=== PATIENT | female | born 1940 | race Caucasian/White ===

== ENCOUNTER 2017-07-13 03:01 | Inpatient (IN) | payer MEDICARE, OTHER ==
[2017-07-13] MEDS ORDERED: MORPHINE SULFATE 4 MG/0.8 ML SYRINGE (INJ) IVP STA (04:05)
[2017-07-13] MEDS ORDERED: ONDANSETRON 4 MG/2 ML VIAL IVP STA (04:05)
[2017-07-13] MEDS ORDERED: MORPHINE SULFATE 4 MG/0.8 ML SYRINGE (INJ) IV PRN (04:11)
[2017-07-13] MEDS ORDERED: NALOXONE 0.4 MG/ML 1 ML VIAL IV PRN (04:11)
[2017-07-13] MEDS ORDERED: ACETAMINOPHEN TAB 325 MG TAB PO PRN (04:11)
[2017-07-13] MEDS ORDERED: ONDANSETRON 4 MG/2 ML VIAL IVP PRN (04:11)
--- NOTE | 2017-07-13 04:11 | ED ---
Altered Mental Status HPI - General Chief Complaint: Altered Mental Status Stated Complaint: pneumonia Time Seen by Provider: 07/13/17 03:07 Source: patient, family, EMS Mode of arrival: EMS Limitations: no limitations - History of Present Illness Initial Comments: 77 years Oid female transferred from [facility] she has a history of small cell lung cancer today she presented with the left arm swelling in the left leg swelling and also complaining about the chest pain at [facility] they did her CBC, comp his metabolic panel, chest x-ray which showed pneumonia she also had a her mom CT of the chest which confirms the pneumonia and rule out PE as she also had a head CT which confirmed metastatic disease to the brain. They also investigated her left upper arm swelling in the left lower extremity swelling with the ultrasound of the both which was unremarkable and she was transferred down to [facility] since her oncologist is the Dr. Christian. On arrival she only complained about 2 chest pain apart from that review of system is unremarkable - Related Data Home Medications Medication Instructions Recorded Confirmed Hydrocodone/Acetaminophen [[place] 1 tab PO Q4H PRN 07/13/17 07/13/17 10-325] Allergies Allergy/AdvReac Type Severity Reaction Status Date / Time No Known Allergies Allergy Verified 07/13/17 03:11 Review of Systems ROS Statement: Those systems with pertinent positive or pertinent negative responses have been documented in the HPI. ROS Other: All systems not noted in ROS Statement are negative. Past Medical History Past Medical History: CVA/TIA, Diabetes Mellitus Additional Past Medical History / Comment(s): Lung CA "mets" to brain, pneumonia , hypotension, NIDDM History of Any Multi-Drug Resistant Organisms: None Reported Past Surgical History: Cholecystectomy Past Psychological History: No Psychological Hx Reported Smoking Status: Never smoker Past Alcohol Use History: None Reported Past Drug Use History: None Reported General Exam - General Exam Comments Initial Comments: General: The patient is awake and alert, looks pale and tired does answer questions appropriately but seems somewhat slow Skin: Skin is warm and dry and no rashes or lesions are noted. Eye: Pupils are equal, round and reactive to light, extra-ocular movements are intact; there is normal conjunctiva bilaterally. Ears, nose, mouth and throat: There are moist mucous membranes and no oral lesions. Neck: The neck is supple, there is no tenderness or JVD. Cardiovascular: There is a regular rate and rhythm. No murmur, rub or gallop is appreciated. Respiratory: To auscultation bilateral, crease breath sounds bilateral Gastrointestinal: Soft, non-distended, non-tender abdomen without masses or organomegaly noted. There is no rebound or guarding present. Bowel sounds are unremarkable. Back: There is no tenderness to palpation in the midline. There is no obvious deformity. Musculoskeletal: Normal ROM, no tenderness, There is no pedal edema. There is no calf tenderness or swelling. No cords were appreciated. Neurological: CN II-XII intact, Cranial nerves III through XII are intact. There are no obvious motor or sensory deficits. Coordination appears grossly intact. Speech is normal. Psychiatric: Cooperative, seems depressed Limitations: no limitations Course Vital Signs 07/13/17 03:02 Temperature 98.2 F Pulse Rate 98 Respiratory 18 Rate Blood Pressure 172/83 O2 Sat by Pulse 93 L Oximetry EKG is sinus rhythm with occasional premature ventricular complexes ventricular rate is 96 HI interval is 128 QRS duration is 76 QT/QTc is 340/429 review of this EKG as mentioned earlier have some PVCs no ST elevation or ST depression noticed She be admitted to Dr. Clinton Yates's service and will consult , he is her supervisor safety deposit and will consult Dr. Nur he is her oncologist Disposition Clinical Impression: Altered mental status, Brain metastases, History of lung cancer Disposition: ADMITTED IP TO THIS HOSP Condition: Poor Referrals: Wes Christian MD [Primary Care Provider] - 1-2 days
[2017-07-13] MEDS ORDERED: LEVOFLOXACIN 500 MG TAB PO STA (04:23)
[2017-07-13 05:35] VITALS: BMI 21.4
[2017-07-13 07:25] LABS: Glucose,Whole Blood 136 mg/dL (75-99)
[2017-07-13 11:38] LABS: Glucose,Whole Blood 166 mg/dL (75-99)
[2017-07-13] MEDS ORDERED: MECLIZINE 12.5 MG TAB PO PRN (12:47)
[2017-07-13] MEDS ORDERED: MORPHINE SULFATE 4 MG/ML SYRINGE IV PRN (15:01)
[2017-07-13] MEDS: HYDROcodone/APAP 10-325MG 1 EACH TAB PO PRN (16:17)
[2017-07-13 17:00] LABS: Glucose,Whole Blood 157 mg/dL (75-99)
--- NOTE | 2017-07-13 17:21 | P.CONS ---
History of Present Illness - Reason for Consult Consult date: 07/13/17 Metastatic lung cancer Requesting physician: Mary Prieto - Chief Complaint Altered mental status, transfer [facility], mets on brain CT - History of Present Illness Mrs. Olguin is a pleasant female pt of Dr. Christian, presented to [facility] ER due to increased shortness of breath over baseline, she was diagnosed with COPD exacerbation and admitted to the hospital, CXR 11/09/16 revealed a right middle lobe nodule, as well as possible mediastinal adenopathy , CT chest on the same day confirmed a 2.42.52.6 cm related nodule in the right middle lobe, outpatient bronchoscopy on 11/19/16, positive for moderately differentiated adenocarcinoma, consistent with lung primary based on IHC, staging PET 12/05/16 showed hyper metabolic right supraclavicular node measuring 1.21.1 cm, 2.71.7 cm right middle lobe nodule, as well as uptake in the veronica mass involving the right hilum, para carinal as well as left hilar areas. She was seen for initial consultation on 12/05/16, and concurrent chemo/XRT was planned, she had 3 cycles of chemo for stage III disease, treatment stopped end of Jan due to radiation esophagitis, sepsis and GI bleed. Pt was on follow up and her PS improved. She unfortunately earlier this year had a fall and that caused her left arm and shoulder pain. Her mental status over the last few days declined so family took pt to [facility], she was negative for DVT, CXR clear but brain CT showed evidence of metastatic disease. Pt is sitting in bed, eating, using only her right hand, she answers questions appropriately, denies fever, nausea, GUERDA, abd pain, changes in bowel or bladder habits, her arm pain is persistent but, manageable at this time. Review of Systems 10 point review of systems is as stated in HPI Past Medical History Past Medical History: CVA/TIA, Diabetes Mellitus Additional Past Medical History / Comment(s): Lung CA "mets" to brain, pneumonia , hypotension, NIDDM History of Any Multi-Drug Resistant Organisms: None Reported Past Surgical History: Cholecystectomy, Tonsillectomy Smoking Status: Former smoker - Past Family History Father Family Medical History: Unable to Obtain Medications and Allergies Home Medications Medication Instructions Recorded Confirmed Type Alendronate Sodium [Fosamax] 70 mg PO Q7D 07/13/17 07/13/17 History Atenolol [Atenolol] 07/13/17 History Atenolol [Tenormin] 12.5 mg PO DAILY 07/13/17 07/13/17 History Clopidogrel [Plavix] 75 mg PO DAILY 07/13/17 07/13/17 History Folic Acid 1 mg PO DAILY 07/13/17 07/13/17 History Hydrocodone/Acetaminophen [[place] 1 tab PO TID PRN 07/13/17 07/13/17 History 10-325] Ibuprofen [Motrin] 800 mg PO TID PRN 07/13/17 07/13/17 History Lisinopril-Hctz 20-12.5 mg 0.5 tab PO DAILY 07/13/17 07/13/17 History [Zestoretic 20-12.5] Ondansetron Odt [Zofran Odt] 4 mg PO Q8H PRN 07/13/17 07/13/17 History Pravastatin Sodium [Pravachol] 40 mg PO DAILY 07/13/17 07/13/17 History Prochlorperazine [Compazine] 10 mg PO Q6H PRN 07/13/17 07/13/17 History Allergies Allergy/AdvReac Type Severity Reaction Status Date / Time No Known Allergies Allergy Verified 07/13/17 09:28 Physical Exam Vitals: Vital Signs Temp Pulse Pulse Resp BP BP Pulse Ox 07/13/17 15:15 98 F 100 18 86/62 95 07/13/17 07:25 97.7 F 90 18 100/56 92 L 07/13/17 05:18 97.6 F 100 18 112/72 92 L 07/13/17 04:09 87 20 137/68 97 07/13/17 03:02 98.2 F 98 18 172/83 93 L Intake and Output 07/13/17 07/13/17 07/13/17 06:59 14:59 22:59 Intake Total 540 Balance 540 Intake: Oral 540 Other: Voiding Method Bedpan Diaper Diaper Incontinent Incontinent # Voids 1 2 Weight 49.895 kg 49.895 kg - Constitutional General appearance: cooperative, no acute distress - EENT Eyes: anicteric sclerae, EOMI, normal appearance - Respiratory Respiratory: bilateral: diminished - Cardiovascular Heart sounds: normal: S1, S2 leg Peripheral Edema: bilateral: Trace - Gastrointestinal General gastrointestinal: normal bowel sounds, soft - Integumentary Left advent/forehead bruise from fall Integumentary: pale - Neurologic Left upper extremity patient guards hoped close to her chest, does not move - Musculoskeletal Musculoskeletal: generalized weakness - Psychiatric Patient does answer questions appropriately, she does appear to understand that she has cancer Results Labs: Abnormal Lab Results - Last 24 Hours (Table) 07/13/17 07/13/17 Range/Units 07:23 11:36 POC Glucose (mg/dL) 136 H 166 H (75-99) mg/dL Comments: Doppler report from [facility] reviewed Chest x-ray: report reviewed CT Scan - head: report reviewed Assessment and Plan (1) Brain metastases Narrative/Plan: Dexamethasone started, 4mg PO TID PPI initiated for prevention of steroid gastritis Current Visit: Yes Status: Acute Priority: High Code(s): C79.31 - SECONDARY MALIGNANT NEOPLASM OF BRAIN SNOMED Code(s): 92524175 (2) History of lung cancer Current Visit: Yes Status: Acute Priority: High Code(s): Z85.118 - PERSONAL HISTORY OF MALIGNANT NEOPLASM OF BRONCHUS AND LUNG SNOMED Code(s): 477065419 Plan: Did discuss with the family the findings on the imaging of the head done of [facility]. Patient has metastatic disease to the brain, not a new primary of brain cancer. Patient made it clear to the family, some time ago , that she did not want any further chemotherapy and she did not want radiation. Having this information it was more appropriate that we discuss hospice, keeping patient comfortable at home and focusing on quality of life versus quantity of life if patient did not want treatment of malignancy. Greater than 30 minutes was spent counseling and answering patient and family questions. Consult was placed for hospice information. Patient is okay to be discharged home from a hematology/oncology standpoint as soon as hospice services are in place. Time with Patient: Greater than 30 (counseling and coordinating care)
[2017-07-13] MEDS: PANTOPRAZOLE 40 MG TABLET PO SCH (17:22)
[2017-07-13] MEDS: DEXAMETHASONE 4 MG TAB PO SCH ×2 (17:23→20:40)
--- NOTE | 2017-07-13 17:47 | P.CNPUL ---
History of Present Illness Consult date: 07/13/17 Reason for consult: dyspnea, cough, chest pain Chief complaint: Generalized weakness confusion and altered mental status History of present illness: 77-year-old female who was seen evaluated examined on fifth floor this patient is very well-known to me for her history of right-sided lung mass and adenocarcinoma patient recently has been seen in the office for sternal pain as well as back pain she was suspected to have metastatic disease of bone scan was recommended and requested chest x-ray was fairly unremarkable about a week ago patient was fairly stable was discharged from the office to follow-up however developed problems associated with generalized weakness which was progressive over the next several days until to a point that patient was brought into emergency department at [facility] where she was evaluated with a computed tomography scan of the head revealed presence of multiple metastatic lesion computed tomography scan of the chest confirmed presence of pneumonia patient was transferred to [facility] for further evaluation and intervention and treatment. Mrs. Olguin is a pleasant female pt of Dr. Christian, presented to [facility] ER due to increased shortness of breath over baseline, she was diagnosed with COPD exacerbation and admitted to the hospital, CXR 11/09/16 revealed a right middle lobe nodule, as well as possible mediastinal adenopathy , CT chest on the same day confirmed a 2.42.52.6 cm related nodule in the right middle lobe, outpatient bronchoscopy on 11/19/16, positive for moderately differentiated adenocarcinoma, consistent with lung primary based on IHC, staging PET 12/05/16 showed hyper metabolic right supraclavicular node measuring 1.21.1 cm, 2.71.7 cm right middle lobe nodule, as well as uptake in the veronica mass involving the right hilum, para carinal as well as left hilar areas. she had 3 cycles of chemo for stage III disease, treatment stopped end of Jan due to radiation esophagitis, sepsis and GI bleed. Review of Systems All systems: negative Past Medical History Past Medical History: CVA/TIA, Diabetes Mellitus Additional Past Medical History / Comment(s): Lung CA "mets" to brain, pneumonia , hypotension, NIDDM History of Any Multi-Drug Resistant Organisms: None Reported Past Surgical History: Cholecystectomy, Tonsillectomy Smoking Status: Former smoker - Past Family History Father Family Medical History: Unable to Obtain Medications and Allergies Home Medications Medication Instructions Recorded Confirmed Type Alendronate Sodium [Fosamax] 70 mg PO Q7D 07/13/17 07/13/17 History Atenolol [Atenolol] 07/13/17 History Atenolol [Tenormin] 12.5 mg PO DAILY 07/13/17 07/13/17 History Clopidogrel [Plavix] 75 mg PO DAILY 07/13/17 07/13/17 History Folic Acid 1 mg PO DAILY 07/13/17 07/13/17 History Hydrocodone/Acetaminophen [[place] 1 tab PO TID PRN 07/13/17 07/13/17 History 10-325] Ibuprofen [Motrin] 800 mg PO TID PRN 07/13/17 07/13/17 History Lisinopril-Hctz 20-12.5 mg 0.5 tab PO DAILY 07/13/17 07/13/17 History [Zestoretic 20-12.5] Ondansetron Odt [Zofran Odt] 4 mg PO Q8H PRN 07/13/17 07/13/17 History Pravastatin Sodium [Pravachol] 40 mg PO DAILY 07/13/17 07/13/17 History Prochlorperazine [Compazine] 10 mg PO Q6H PRN 07/13/17 07/13/17 History Allergies Allergy/AdvReac Type Severity Reaction Status Date / Time No Known Allergies Allergy Verified 07/13/17 09:28 Physical Exam Vitals: Vital Signs Temp Pulse Pulse Resp BP BP Pulse Ox 07/13/17 17:03 100 18 07/13/17 15:15 98 F 100 18 86/62 95 07/13/17 07:25 97.7 F 90 18 100/56 92 L 07/13/17 05:18 97.6 F 100 18 112/72 92 L 07/13/17 04:09 87 20 137/68 97 07/13/17 03:02 98.2 F 98 18 172/83 93 L Intake and Output 07/13/17 07/13/17 07/13/17 06:59 14:59 22:59 Intake Total 540 Balance 540 Intake: Oral 540 Other: Voiding Method Bedpan Diaper Diaper Diaper Incontinent Incontinent Incontinent # Voids 1 2 2 Weight 49.895 kg 49.895 kg 49.895 kg - Constitutional General appearance: cooperative, no acute distress - EENT Eyes: anicteric sclerae, EOMI, normal appearance - Respiratory Respiratory: bilateral: diminished - Cardiovascular Heart sounds: normal: S1, S2 leg Peripheral Edema: bilateral: Trace - Gastrointestinal General gastrointestinal: normal bowel sounds, soft - Integumentary Left uatsdin/forehead bruise from fall Integumentary: pale - Neurologic Left upper extremity patient guards hoped close to her chest, does not move - Musculoskeletal Musculoskeletal: generalized weakness - Psychiatric Patient does answer questions appropriately, she does appear to understand that she has cancer Results - Laboratory Findings Abnormal lab findings: Abnormal Labs 07/13/17 07/13/17 07/13/17 07:23 11:36 16:58 POC Glucose (mg/dL) 136 H 166 H 157 H - Diagnostic Findings Chest x-ray: report reviewed CT scan - chest: report reviewed (Reports from [facility] as they're available reviewed his findings as noted above) Assessment and Plan Assessment: Generalized weakness and altered mental status related to metastatic lesions in the brain likely related to stage IV adenocarcinoma of the lung The static lesions in the brain Stage IV adenocarcinoma of the lung Postobstructive pneumonia/likely mixed bacterial and/or or gram-negative pneumonia Severe COPD emphysema Plan: IV hydration Pain control IV antibiotics with Zosyn 3.375 every 8 hourly Deep breathing exercise incentive spirometry Decadron to reduce swelling in the brain Continue home medications DVT and peptic ulcer disease prophylaxis Further recommendations pending plan of care as per clinical response of the patient Currently patient refusing chemo or or any additional radiation therapy Time with Patient: Greater than 30
[2017-07-13] MEDS: PIPERACILLIN-TAZOBACTAM 3.375 GM in DEXTROSE/WATER 1 50ML.BAG IVPB SCH (18:41)
[2017-07-13] MEDS: ATENOLOL 25 MG TAB PO SCH (20:40)
[2017-07-13] MEDS: FAMOTIDINE 20 MG TAB PO SCH (20:40)
--- NOTE | 2017-07-13 22:35 | HP ---
HISTORY AND PHYSICAL CHIEF COMPLAINT: [id number]-old white female was admitted generalized weakness, altered mental status, dyspnea, cough, chest pain. HISTORY OF PRESENT ILLNESS: This is a 77-year-old white female with right-sided lung mass, adenocarcinoma. 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 She last fall radiation chemotherapy. She wants no more chemotherapy or radiation at this time. Possibly hospice care at home will be needed. PAST MEDICAL HISTORY: As mentioned, cholecystectomy and tonsillectomy. She has diabetes mellitus, hypertension, small cell lung cancer, as mentioned, diagnosed last year, CVA, TIA, diabetes mellitus. HOME MEDICINES: 1. Fosamax 70 mg . 2. Atenolol 12.5 daily. 3. Plavix 75 mg daily. 4. Folic acid 1 mg daily. 5. [place] 10/325 t.i.d. 6. Motrin 800 t.i.d. 7. Zestoretic 20/12.5 half tablet daily. 8. Zofran 4 mg q.8 hours p.r.n. 9. Pravachol 40 mg daily. 10.Compazine 10 mg q.6 p.r.n. PHYSICAL EXAMINATION: Blood pressure 130s to 170s over 60s to 80s. Oxygen 93% to 97%, pulse 87 to 90, temperature 98.2. HEENT: Normocephalic, atraumatic. OPHTHALMOLOGIC: Pupils equal, round, reactive to light and accommodation. PSYCH: Fair mood and affect. Giving appropriate answers. CARDIOVASCULAR: S1, S2. GENITOURINARY: No suprapubic tenderness. VASCULAR: Normal dorsalis pedis. posterior tibial, radial pulse. CT scan was reviewed of the brain. ASSESSMENT: 1. Generalized weakness. 2. Metastatic lesions to the brain. 3. Stage IV adenocarcinoma of the lung. 4. Postobstructive pneumonia. 5. Severe chronic obstructive pulmonary disease. IV hydration. Zosyn for pneumonia. Decadron for swelling in the brain decrease. Further recommendations. MMODL / IJN: [id number] /
[2017-07-14] MEDS: PIPERACILLIN-TAZOBACTAM 3.375 GM in DEXTROSE/WATER 1 50ML.BAG IVPB SCH ×4 (00:15→23:11)
[2017-07-14] MEDS: HYDROcodone/APAP 10-325MG 1 EACH TAB PO PRN ×2 (07:52→12:17)
[2017-07-14] MEDS: PANTOPRAZOLE 40 MG TABLET PO SCH ×2 (07:53→16:30)
[2017-07-14] MEDS: FAMOTIDINE 20 MG TAB PO SCH (07:53)
[2017-07-14] MEDS: CLOPIDOGREL 75 MG TAB PO SCH (07:53)
[2017-07-14] MEDS: DEXAMETHASONE 4 MG TAB PO SCH ×3 (07:53→21:08)
[2017-07-14] MEDS: PRAVASTATIN SODIUM 40 MG TAB PO SCH (07:53)
[2017-07-14] MEDS: LISINOPRIL-HCTZ 20-12.5 MG 1 EACH TAB PO SCH (07:54)
[2017-07-14 08:35] LABS: Basophils % (A) 0 %; Eosinophils % (A) 0 %; HCT 28.6 % (34.0-46.0); HGB 9.7 gm/dL (11.4-16.0); Lymphocytes # (A) 0.5 k/uL (1.0-4.8); Lymphocytes % (A) 8 %; MCH 31.4 pg (25.0-35.0); MCV 92.3 fL (80.0-100.0); Monocytes # (A) 0.3 k/uL (0-1.0); Monocytes % (A) 4 %; Neutrophils # (A) 5.9 k/uL (1.3-7.7); Neutrophils % (A) 88 %; Platelet Count 216 k/uL (150-450); WBC 6.7 k/uL (3.8-10.6)
[2017-07-14 09:06] LABS: ALT 18 U/L (9-52); AST 14 U/L (14-36); Albumin 3.2 g/dL (3.5-5.0); Alkaline Phosphatase 51 U/L (38-126); Anion Gap 9 mmol/L; Blood Urea Nitrogen 23 mg/dL (7-17); Calcium 9.1 mg/dL (8.4-10.2); Carbon Dioxide 24 mmol/L (22-30); Chloride 98 mmol/L (98-107); Glucose 113 mg/dL (74-99); Potassium 4.7 mmol/L (3.5-5.1); Sodium 131 mmol/L (137-145); Total Bilirubin 0.4 mg/dL (0.2-1.3); Total Protein 5.4 g/dL (6.3-8.2)
[2017-07-14] MEDS: MORPHINE ORAL SOLN 10 MG/5 ML CUP PO PRN (11:06)
[2017-07-14] MEDS: FOLIC ACID 1 MG TAB PO SCH (11:09)
[2017-07-14] MEDS ORDERED: LIDOCAINE 4% CREAM 5 GM TUBE TOPICAL PRN (12:30)
--- NOTE | 2017-07-14 17:53 | P.PN ---
Subjective Progress Note Date: 07/14/17 Principal diagnosis: Postobstructive pneumonia, metastatic lung cancer, metastatic brain lesions, no carcinoma of the lung, severe COPD and emphysema 07/14/2017, patient seen eval examined during the rounds continue to complain of generalized weakness and shortness of breath and labs reviewed medications reviewed hemoglobin remained stable white cell count is stable as well as renal functions are normal patient is on broad-spectrum antibiotics for pneumonia and Decadron for peritumor edema in brain 77-year-old female who was seen evaluated examined on fifth floor this patient is very well-known to me for her history of right-sided lung mass and adenocarcinoma patient recently has been seen in the office for sternal pain as well as back pain she was suspected to have metastatic disease of bone scan was recommended and requested chest x-ray was fairly unremarkable about a week ago patient was fairly stable was discharged from the office to follow-up however developed problems associated with generalized weakness which was progressive over the next several days until to a point that patient was brought into emergency department at [facility] where she was evaluated with a computed tomography scan of the head revealed presence of multiple metastatic lesion computed tomography scan of the chest confirmed presence of pneumonia patient was transferred to [facility] for further evaluation and intervention and treatment. Mrs. Olguin is a pleasant female pt of Dr. Christian, presented to [facility] ER due to increased shortness of breath over baseline, she was diagnosed with COPD exacerbation and admitted to the hospital, CXR 11/09/16 revealed a right middle lobe nodule, as well as possible mediastinal adenopathy , CT chest on the same day confirmed a 2.42.52.6 cm related nodule in the right middle lobe, outpatient bronchoscopy on 11/19/16, positive for moderately differentiated adenocarcinoma, consistent with lung primary based on IHC, staging PET 12/05/16 showed hyper metabolic right supraclavicular node measuring 1.21.1 cm, 2.71.7 cm right middle lobe nodule, as well as uptake in the veronica mass involving the right hilum, para carinal as well as left hilar areas. she had 3 cycles of chemo for stage III disease, treatment stopped end of Jan due to radiation esophagitis, sepsis and GI bleed. Objective - Vital Signs Vital signs: Vital Signs Temp 98 F 07/14/17 15:15 Pulse 78 05/01/18 15:15 Resp 16 07/14/17 15:15 BP 132/74 07/14/17 15:15 Pulse Ox 94 L 07/14/17 15:15 Intake & Output 07/13/17 07/14/17 07/14/17 18:59 06:59 18:59 Intake Total 540 300 Balance 540 300 Weight 49.895 kg Intake: Oral 540 300 Other: Voiding Method Diaper Incontinent Incontinent Incontinent # Voids 2 2 3 - Exam - Constitutional General appearance: cooperative, no acute distress - EENT Eyes: anicteric sclerae, EOMI, normal appearance - Respiratory Respiratory: bilateral: diminished - Cardiovascular Heart sounds: normal: S1, S2 leg Peripheral Edema: bilateral: Trace - Gastrointestinal General gastrointestinal: normal bowel sounds, soft - Integumentary Left uatsdin/forehead bruise from fall Integumentary: pale - Neurologic Left upper extremity patient guards hoped close to her chest, does not move - Musculoskeletal Musculoskeletal: generalized weakness - Psychiatric Patient does answer questions appropriately, she does appear to understand that she has cancer - Labs CBC & Chem 7: 07/14/17 07:29 07/14/17 07:29 Labs: Abnormal Lab Results - Last 24 Hours (Table) 07/14/17 07/14/17 Range/Units 07:29 07:29 RBC 3.10 L (3.80-5.40) m/uL Hgb 9.7 L (11.4-16.0) gm/dL Hct 28.6 L (34.0-46.0) % Lymphocytes # 0.5 L (1.0-4.8) k/uL Sodium 131 L (137-145) mmol/L BUN 23 H (7-17) mg/dL Glucose 113 H (74-99) mg/dL Total Protein 5.4 L (6.3-8.2) g/dL Albumin 3.2 L (3.5-5.0) g/dL Assessment and Plan Assessment: Generalized weakness and altered mental status related to metastatic lesions in the brain likely related to stage IV adenocarcinoma of the lung The metastatic lesions in the brain Stage IV adenocarcinoma of the lung Postobstructive pneumonia/likely mixed bacterial and/or or gram-negative pneumonia Severe COPD emphysema Plan: IV hydration Pain control IV antibiotics with Zosyn 3.375 every 8 hourly Deep breathing exercise incentive spirometry Decadron to reduce swelling in the brain Continue home medications DVT and peptic ulcer disease prophylaxis Further recommendations pending plan of care as per clinical response of the patient Currently patient refusing chemo or or any additional radiation therapy Time with Patient: Greater than 30
[2017-07-14] MEDS: DOCUSATE 100 MG CAP PO SCH (21:08)
[2017-07-14] MEDS: ATENOLOL 25 MG TAB PO SCH (21:08)
--- NOTE | 2017-07-14 23:29 | PN ---
PROGRESS NOTE SUBJECTIVE: This is a white female, 77 years old, who was admitted with small-cell cancer radiating to the brain. The patient has had no chest pain, shortness of breath. no nausea, vomiting. OPHTHALMOLOGIC: Pupils equal, round, reactive to light and accommodation. NEUROLOGIC: Alert and oriented x3. Vital signs stable. Afebrile. ASSESSMENT: 1. Small-cell lung cancer radiating to the brain. 2. Possible pneumonia. Started on IV antibiotics. She is possible comfort care. Does not want radiology or chemotherapy. PLAN: Continue with current treatment. Follow up in the next 24 to 48 hours. MMODL / IJN: [id number] /
[2017-07-15] MEDS: HYDROcodone/APAP 10-325MG 1 EACH TAB PO PRN (08:03)
[2017-07-15] MEDS: PIPERACILLIN-TAZOBACTAM 3.375 GM in DEXTROSE/WATER 1 50ML.BAG IVPB SCH ×2 (08:03→16:37)
[2017-07-15] MEDS: PANTOPRAZOLE 40 MG TABLET PO SCH ×2 (08:04→16:37)
[2017-07-15] MEDS: LISINOPRIL-HCTZ 20-12.5 MG 1 EACH TAB PO SCH (08:04)
[2017-07-15] MEDS: CLOPIDOGREL 75 MG TAB PO SCH (08:04)
[2017-07-15] MEDS: DEXAMETHASONE 4 MG TAB PO SCH ×3 (08:04→21:09)
[2017-07-15] MEDS: DOCUSATE 100 MG CAP PO SCH ×2 (08:04→21:09)
[2017-07-15] MEDS: PRAVASTATIN SODIUM 40 MG TAB PO SCH (08:05)
[2017-07-15] MEDS: FOLIC ACID 1 MG TAB PO SCH (11:34)
--- NOTE | 2017-07-15 11:35 | P.PN ---
Subjective Progress Note Date: 07/15/17 Principal diagnosis: Postobstructive pneumonia, metastatic lung cancer, metastatic brain lesions, no carcinoma of the lung, severe COPD and emphysema 07/15/2017, patient seen and evaluated examined her respiratory status is slightly more better and improve her cough congestion is better he denies any chest pain now Ammann her labs and medications reviewed we'll obtain a follow- up chest x-ray 07/14/2017, patient seen eval examined during the rounds continue to complain of generalized weakness and shortness of breath and labs reviewed medications reviewed hemoglobin remained stable white cell count is stable as well as renal functions are normal patient is on broad-spectrum antibiotics for pneumonia and Decadron for peritumor edema in brain 77-year-old female who was seen evaluated examined on fifth floor this patient is very well-known to me for her history of right-sided lung mass and adenocarcinoma patient recently has been seen in the office for sternal pain as well as back pain she was suspected to have metastatic disease of bone scan was recommended and requested chest x-ray was fairly unremarkable about a week ago patient was fairly stable was discharged from the office to follow-up however developed problems associated with generalized weakness which was progressive over the next several days until to a point that patient was brought into emergency department at [facility] where she was evaluated with a computed tomography scan of the head revealed presence of multiple metastatic lesion computed tomography scan of the chest confirmed presence of pneumonia patient was transferred to [facility] for further evaluation and intervention and treatment. Mrs. Olguin is a pleasant female pt of Dr. Christian, presented to [facility] ER due to increased shortness of breath over baseline, she was diagnosed with COPD exacerbation and admitted to the hospital, CXR 11/09/16 revealed a right middle lobe nodule, as well as possible mediastinal adenopathy , CT chest on the same day confirmed a 2.42.52.6 cm related nodule in the right middle lobe, outpatient bronchoscopy on 11/19/16, positive for moderately differentiated adenocarcinoma, consistent with lung primary based on IHC, staging PET 12/05/16 showed hyper metabolic right supraclavicular node measuring 1.21.1 cm, 2.71.7 cm right middle lobe nodule, as well as uptake in the veronica mass involving the right hilum, para carinal as well as left hilar areas. she had 3 cycles of chemo for stage III disease, treatment stopped end of Jan due to radiation esophagitis, sepsis and GI bleed. Objective - Vital Signs Vital signs: Vital Signs Temp 97.9 F 07/15/17 07:25 Pulse 75 07/15/17 07:25 Resp 18 07/15/17 07:25 BP 140/73 07/15/17 07:25 Pulse Ox 98 07/15/17 07:25 Intake & Output 07/14/17 07/15/17 07/15/17 18:59 06:59 18:59 Intake Total 100 Balance 100 Intake: IV 100 Piperacillin-Tazobactam 3 100 .375 gm In Dextrose/Water 1 50ml.bag @ 12.5 mls/hr IVPB Q8HR [facility] Rx#: [id number] Other: Voiding Method Incontinent Incontinent Incontinent # Voids 3 3 - Exam - Constitutional General appearance: cooperative, no acute distress - EENT Eyes: anicteric sclerae, EOMI, normal appearance - Respiratory Respiratory: bilateral: diminished - Cardiovascular Heart sounds: normal: S1, S2 leg Peripheral Edema: bilateral: Trace - Gastrointestinal General gastrointestinal: normal bowel sounds, soft - Integumentary Left scientology/forehead bruise from fall Integumentary: pale - Neurologic Left upper extremity patient guards hoped close to her chest, does not move - Musculoskeletal Musculoskeletal: generalized weakness - Psychiatric Patient does answer questions appropriately, she does appear to understand that she has cancer - Labs CBC & Chem 7: 07/14/17 07:29 07/14/17 07:29 Assessment and Plan Assessment: Generalized weakness and altered mental status related to metastatic lesions in the brain likely related to stage IV adenocarcinoma of the lung The metastatic lesions in the brain Stage IV adenocarcinoma of the lung Postobstructive pneumonia/likely mixed bacterial and/or or gram-negative pneumonia Severe COPD emphysema Plan: IV hydration Pain control IV antibiotics with Zosyn 3.375 every 8 hourly, obtain follow-up chest x-ray Deep breathing exercise incentive spirometry Decadron to reduce swelling in the brain Continue home medications DVT and peptic ulcer disease prophylaxis Further recommendations pending plan of care as per clinical response of the patient Currently patient refusing chemo or or any additional radiation therapy Time with Patient: Greater than 30
[2017-07-15] MEDS: MORPHINE ORAL SOLN 10 MG/5 ML CUP PO PRN (13:19)
--- NOTE | 2017-07-15 18:21 | PN ---
PROGRESS NOTE SUBJECTIVE: 77-year-old white female seen, evaluated for respiratory distress, improved cough, congestion. Cardiovascular S1-S2. Lungs scattered rhonchi and wheeze. Hematology negative Homans. Psych fair mood and affect. Temperature 97.9, pulse 75, respiratory rate 18, blood pressure 140/73, O2 98% on room air. Hemoglobin 9.7, sodium 131, potassium 4.7. ASSESSMENT: 1. Generalized weakness, altered mental status secondary to metastatic lesion of the brain secondary to stage IV adenocarcinoma of the lung. 2. Postobstructive pneumonia, gram-negative pneumonia. 3. Severe chronic obstructive pulmonary disease and emphysema. Continue with IV Zosyn, IV hydration, pain control. HOME MEDICATIONS: Please see further orders. MMODL / IJN: [id number] /
[2017-07-15] MEDS: ATENOLOL 25 MG TAB PO SCH (21:09)
[2017-07-16] MEDS: PIPERACILLIN-TAZOBACTAM 3.375 GM in DEXTROSE/WATER 1 50ML.BAG IVPB SCH ×2 (00:03→08:07)
[2017-07-16] MEDS: LISINOPRIL-HCTZ 20-12.5 MG 1 EACH TAB PO SCH (08:11)
[2017-07-16] MEDS: PRAVASTATIN SODIUM 40 MG TAB PO SCH (08:11)
[2017-07-16] MEDS: CLOPIDOGREL 75 MG TAB PO SCH (08:12)
[2017-07-16] MEDS: HYDROcodone/APAP 10-325MG 1 EACH TAB PO PRN ×2 (08:12→12:14)
[2017-07-16] MEDS: PANTOPRAZOLE 40 MG TABLET PO SCH (08:12)
[2017-07-16] MEDS: DOCUSATE 100 MG CAP PO SCH (08:12)
[2017-07-16] MEDS: DEXAMETHASONE 4 MG TAB PO SCH (08:12)
--- NOTE | 2017-07-16 08:23 | XR ---
EXAMINATION TYPE: XR chest 1V portable DATE OF EXAM: 07/16/2017 COMPARISON: Chest CT and chest x-ray from outside institution 07/12/2017 HISTORY: Pneumonia and abnormal chest x-ray TECHNIQUE: Single frontal view of the chest is obtained. FINDINGS: Patient is rotated. Right hilar density is again noted, right middle lobe lung mass is see n. Prominent lung volumes compatible with underlying emphysema. No evident pneumothorax or pleural ef fusion. Left lower lobe nodule seen on chest CT is not as well seen on chest x-ray. IMPRESSION: Present bronchogenic carcinoma, metastatic disease. Emphysema. Follow-up is recommended.
[2017-07-16] MEDS: MORPHINE ORAL SOLN 10 MG/5 ML CUP PO PRN (09:10)
[2017-07-16 09:19] VITALS: BP 167/100; RESP 16; TEMP 97.4
[2017-07-16] MEDS: FOLIC ACID 1 MG TAB PO SCH (12:18)
[2017-07-16 12:25] VITALS: PULSE 78
--- NOTE | 2017-07-16 13:48 | P.PN ---
Subjective Progress Note Date: 07/16/17 Principal diagnosis: metastatic NSCLC Pt seen with family at bedside, she is going to go home with hospice. Currently she is denying pain, SOB or any other physical c/o, pt can be confused at times. Objective - Vital Signs Vital signs: Vital Signs Temp 97.4 F L 07/16/17 08:25 Pulse 65 07/16/17 08:25 Resp 16 07/16/17 08:25 BP 167/100 07/16/17 08:25 Pulse Ox 97 07/16/17 08:25 Intake & Output 07/15/17 07/16/17 07/16/17 18:59 06:59 18:59 Intake Total 120 Balance 120 Weight 49.895 kg Intake: Oral 120 Other: Voiding Method Incontinent Incontinent Incontinent # Voids 1 1 1 - Exam Pt sitting up in bed, alert, oriented to self, place, she can change positions in the bed independently, no s/s distress, respirations even and unlabored - Labs CBC & Chem 7: 07/14/17 07:29 07/14/17 07:29 Assessment and Plan (1) Brain metastases Current Visit: Yes Status: Acute Priority: High Code(s): C79.31 - SECONDARY MALIGNANT NEOPLASM OF BRAIN SNOMED Code(s): 91502621 (2) History of lung cancer Current Visit: Yes Status: Acute Priority: High Code(s): Z85.118 - PERSONAL HISTORY OF MALIGNANT NEOPLASM OF BRONCHUS AND LUNG SNOMED Code(s): 901333957 Plan: Patient has metastatic disease to the brain now. Patient does not want chemotherapy or radiation. Pt is going home with her family with hospice care Patient is okay to be discharged home from a hematology/oncology standpoint as soon as hospice services are in place.
--- NOTE | 2017-07-16 14:29 | P.PN ---
Subjective Progress Note Date: 07/16/17 Principal diagnosis: Postobstructive pneumonia, metastatic lung cancer, metastatic brain lesions, no carcinoma of the lung, severe COPD and emphysema 07/16/2017, patient seen and evaluated examined during the rounds on fifth floor care plan discussed with the nursing staff, patient is still left shortness of breath and dry nonproductive cough she remains on broad-spectrum antibiotics, and discussions were done with the patient and she continued decline chemotherapy and radiation therapy also declined radiation therapy for brain lesions, patient family is considering hospice and would be evaluated later on today, labs reviewed medications reviewed 07/15/2017, patient seen and evaluated examined her respiratory status is slightly more better and improve her cough congestion is better he denies any chest pain now Ammann her labs and medications reviewed we'll obtain a follow- up chest x-ray 07/14/2017, patient seen eval examined during the rounds continue to complain of generalized weakness and shortness of breath and labs reviewed medications reviewed hemoglobin remained stable white cell count is stable as well as renal functions are normal patient is on broad-spectrum antibiotics for pneumonia and Decadron for peritumor edema in brain 77-year-old female who was seen evaluated examined on fifth floor this patient is very well-known to me for her history of right-sided lung mass and adenocarcinoma patient recently has been seen in the office for sternal pain as well as back pain she was suspected to have metastatic disease of bone scan was recommended and requested chest x-ray was fairly unremarkable about a week ago patient was fairly stable was discharged from the office to follow-up however developed problems associated with generalized weakness which was progressive over the next several days until to a point that patient was brought into emergency department at [facility] where she was evaluated with a computed tomography scan of the head revealed presence of multiple metastatic lesion computed tomography scan of the chest confirmed presence of pneumonia patient was transferred to [facility] for further evaluation and intervention and treatment. Mrs. Olguin is a pleasant female pt of Dr. Christian, presented to [facility] ER due to increased shortness of breath over baseline, she was diagnosed with COPD exacerbation and admitted to the hospital, CXR 11/09/16 revealed a right middle lobe nodule, as well as possible mediastinal adenopathy , CT chest on the same day confirmed a 2.42.52.6 cm related nodule in the right middle lobe, outpatient bronchoscopy on 11/19/16, positive for moderately differentiated adenocarcinoma, consistent with lung primary based on IHC, staging PET 12/05/16 showed hyper metabolic right supraclavicular node measuring 1.21.1 cm, 2.71.7 cm right middle lobe nodule, as well as uptake in the veronica mass involving the right hilum, para carinal as well as left hilar areas. she had 3 cycles of chemo for stage III disease, treatment stopped end of Jan due to radiation esophagitis, sepsis and GI bleed. Objective - Vital Signs Vital signs: Vital Signs Temp 97.4 F L 07/16/17 08:25 Pulse 65 07/16/17 08:25 Resp 16 07/16/17 08:25 BP 167/100 07/16/17 08:25 Pulse Ox 97 07/16/17 08:25 Intake & Output 07/15/17 07/16/17 07/16/17 18:59 06:59 18:59 Intake Total 120 Balance 120 Weight 49.895 kg Intake: Oral 120 Other: Voiding Method Incontinent Incontinent Incontinent # Voids 1 1 1 - Exam - Constitutional General appearance: cooperative, no acute distress - EENT Eyes: anicteric sclerae, EOMI, normal appearance - Respiratory Respiratory: bilateral: diminished - Cardiovascular Heart sounds: normal: S1, S2 leg Peripheral Edema: bilateral: Trace - Gastrointestinal General gastrointestinal: normal bowel sounds, soft - Integumentary Left christianity/forehead bruise from fall Integumentary: pale - Neurologic Left upper extremity patient guards hoped close to her chest, does not move - Musculoskeletal Musculoskeletal: generalized weakness - Psychiatric Patient does answer questions appropriately, she does appear to understand that she has cancer - Labs CBC & Chem 7: 07/14/17 07:29 07/14/17 07:29 Assessment and Plan Assessment: Generalized weakness and altered mental status related to metastatic lesions in the brain likely related to stage IV adenocarcinoma of the lung Multiple metastatic lesions in the brain Stage IV adenocarcinoma of the lung Postobstructive pneumonia/likely mixed bacterial and/or or gram-negative pneumonia Severe COPD emphysema Plan: IV hydration Pain control IV antibiotics with Zosyn 3.375 every 8 hourly, Deep breathing exercise incentive spirometry Decadron to reduce swelling in the brain Continue home medications DVT and peptic ulcer disease prophylaxis Further recommendations pending plan of care as per clinical response of the patient Currently patient refusing chemo or or any additional radiation therapy Noted patient and family is planning for hospice at this point of time will continue current supportive care once patient is enrolled in hospice we'll follow this patient on as-needed basis please call if needed her eyes Time with Patient: Greater than 30
== END 2017-07-16 14:50 | disposition hospice, inpatient (51) | DRG 54 ==
LOC: EC 03:01 → 5MS5E 04:22 → 5ONC 17:47
PROVIDERS: ADMIT Family Medicine; ATTEND Family Medicine
DX: C79.31 Secondary malignant neoplasm of brain (principal); G93.6 Cerebral edema; J15.6 Pneumonia due to other Gram-negative bacteria; C34.90 Malignant neoplasm of unspecified part of unspecified bronchus or lung; C79.51 Secondary malignant neoplasm of bone; E11.9 Type 2 diabetes mellitus without complications; I10 Essential (primary) hypertension; I49.3 Ventricular premature depolarization; J43.9 Emphysema, unspecified; K20.8 Other esophagitis; W19.XXXA Unspecified fall, initial encounter; Z51.5 Encounter for palliative care; Z79.02 Long term (current) use of antithrombotics/antiplatelets; Z79.83 Long term (current) use of bisphosphonates; Z86.73 Personal history of transient ischemic attack (TIA), and cerebral infarction without residual deficits; Z87.891 Personal history of nicotine dependence
CPT/HCPCS: 36415; 71045; 80053; 84484; 85025; 93005; 94760; 96374; 96375; 99285